=== PATIENT | male | born 1955 | race Caucasian/White ===

== ENCOUNTER 2024-01-23 09:38 | Emergency (ER) | payer OTHER ==
--- OUTSIDE RECORDS SUMMARY | 2024-01-23 09:41 | XMS REPORT | Clinical Summary ---
Author Name Unknown Organization [facility] Address [address] [place] [place] [address] Care Team Providers Care Stripper Cutter Machine Name Role Phone Harry Oropeza Jenni Unavailable Hadley Hyman MD Unavailable [phone] Cesilia Raines Unavailable [phone] Mor Damon MD Primary Care Provider [phone] Alanna Jacobsen MD Unavailable [phone] Tomi Aburto MD Unavailable [phone] Allergies No known active allergies Medications * This document contains information received from the source organization and may not represent a complete record from that organization. furosemide (LASIX) 20 mg tablet Take 20 mg by mouth daily. 05/31/2017 Active spironolactone (ALDACTONE) 25 mg tablet Take 25 mg by mouth daily. Active buprenorphine-na loxone (SUBOXONE) 8 mg-[address] 8 mg under the tongue daily. 05/01/2017 Active carvedilol (COREG) 6.25 mg tablet Take 12.5 mg by mouth twice daily. 2 01/22/2018 Active doxazosin (CARDURA) 2 mg tablet Take 1 tablet by mouth daily. 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 Morbid obesity 10/31/2005 Benign essential hypertension 09/02/2005 Surgical History Surgery Date Site/Laterality Comments COLON SURGERY 02/27/2007 - 02/27/2008 polyp of colon COLONOSCOPY 02/27/2011 - 02/27/2012 HERNIA REPAIR 2009 3 surgeries, NEPHRECTOMY 02/27/2007 - 02/27/2008 Right Mass in kidney - KNEE ARTHROPLASTY 02/27/2014 - 02/26/2015 left TOTAL KNEE ARTHROPLASTY 03/30/2017 - 04/26/2017 Left OR EXCISION MALIGNANT LESION F/E/E/N/L 0.5 CM/< 11/08/2018 Midline Procedure: EXCISION OF MALIGNANT LESION OF NOSE; Surgeon: Mor Damon MD; Location: MAIN OR; Service: HN - HEAD & NECK SURGERY OR FTH/GFT FREE W/DIRECT CLOSURE N/E/E/L 20 SQ CM/< 11/09/2018 Midline Procedure: FULL THICKNESS GRAFT OF NOSE; Surgeon: Tomi Aburto MD; Location: MAIN OR; Service: PLS - PLASTIC SURGERY Medical History Medical History Date Comments Hypertension Peripheral vascular disease Thrombosis 2014 DVT in the left leg in 2014 Migraine Chronic fatigue syndrome Hearing loss Chronic bronchitis Dependence on continuous pos itive airway pressure ventilation Hepatitis Kidney failure Sexual dysfunction Benign prostatic hyperplasia Disorder of testis Blood coagulation disorder Blood transfusion, without reported diagnosis Arthritis Depressive disorder Anxiety Bladder cancer Kidney cancer Malignant melanoma Colon cancer Deep venous thrombosis Chronic DVT of lower leg 01/23/2018 Family History Medical History Relation Name Comments -Breast cancer Mother -Colon cancer Mother Relation Name Status Comments Mother Social History Tobacco Use Types Packs/Day Years Used Date Smoking Tobacco: Every Day Cigarettes 1 3 Smokeless Tobacco: Never Tobacco Cessation:Ready to Q uit: Yes Comments:started smoking 15 years of age, quit 1999 started back 2013 Alcohol Use Standard Drinks/Week Comments No 0 (1 standard drink = 0.6 oz pur e alcohol) Sex and Gender Information Value Date Recorded Sex Assigned at Not on file 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 Gender Identity Not on file Sexual Orientation Not on file Obstetrics History Plan of Treatment Health Maintenance Due Date Last Done Comments Pneumococcal Vaccine: 65+ Years (1 of 1 - PCV) 021 COVID-19 Vaccine ( - 2023- season) 2023 Influenza Vaccine (#1) 2023 Medical Devices Implanted Type Area Bulk Loader Device Identifier Shelf Expiration Date Model / Serial / Lot Left Knee Insurance Care Teams Stripper Cutter Machine Relationship Specialty Start Date End Date Harry Oropeza [address] [place] [phone] PCP - External Primary Care Provider Family Practice 01/05/18 Cesilia Raines AuD [address] [place] [phone] PCP - External Follow Up A 10/01/18 Mor Damon MD [address] [place] [phone] [email or web address] PCP - General Head and Neck Surgery 10/01/18 Alanna Jacobsen MD [address] [place] [phone] [email or web address] [email or web address] - External Referring Otolaryngology 10/02/18 Hadley Hyman MD [address] [phone] Referring Physician Cardiology 01/25/18 Tomi Aburto MD [address] [place] [phone] [email or web address] [email or web address] Physician Plastic and Reconstructive Surgery 11/08/18
[2024-01-23] MEDS ORDERED: LIDOCAINE 1% MPF 5 ML VIAL ONE (10:02)
--- NOTE | 2024-01-23 10:12 | RAD REPORT ---
EXAM: CT brain without contrast HISTORY: head injury, anticoagulation, left brow lac COMPARISON: 05/21/2022 TECHNIQUE: Multiple contiguous axial images were obtained and a CT of the brain without contrast. Sag ittal and coronal reformats were performed. One or more of the following dose reduction techniques were used: Automated exposure control, adjust ment of the mA and/or kV according to patient size, and/or iterative reconstruction. FINDINGS: No evidence of hydrocephalus, intracranial hemorrhage, or extra-axial fluid collection. Mild brain atrophy with mild periventricular and deep white matter chronic microvascular ischemic ch anges present. No evidence of midline shift or areas of brain edema. The calvarium is intact. The visualized paranasal sinuses and mastoid air cells are essentially clear . IMPRESSION: No evidence of acute intracranial abnormality.
--- NOTE | 2024-01-23 11:00 | ER ---
Nurse's Notes [facility] Name: Ran Nguyen Age: 68 yrs Sex: Male : 1955 Arrival Date: 01/23/2024 Time: 09:38 Bed 5 Private MD: Diagnosis: Laceration with foreign body of other part of head, initial encounter Presentation: 01/22 09:42 Chief complaint: EMS states: patient tripped and fell onto concrete, hitting the left ap3 side of his head. patient denies LOC and reports being on Eliquis. Coronavirus screen: At this time, the client does not indicate any symptoms associated with coronavirus-19. Ebola Screen: No symptoms or risks identified at this time. Initial Sepsis Screen: Does the patient meet any 2 criteria? No. Patient's initial sepsis screen is negative. Does the patient have a suspected source of infection? No. Patient's initial sepsis screen is negative. Risk Assessment: Do you want to hurt yourself or someone else? Patient reports no desire to harm self or others. Onset of symptoms was January 23, 2024. 09:42 Method Of Arrival: EMS: [facility] ap3 09:42 Acuity: LINDA 2 ap3 Triage Assessment: 09:44 General: Appears in no apparent distress. Behavior is calm, cooperative, appropriate ap3 for age. Pain: Denies pain. Neuro: Level of Consciousness is awake, alert, obeys commands, Oriented to person, place, time, situation, Appropriate for age Speech is normal, Facial symmetry appears normal. Cardiovascular: Patient's skin is warm and dry. Respiratory: Airway is patent Respiratory effort is even, unlabored, Respiratory pattern is regular, symmetrical. Derm: Wound noted left eye and left scientologist. Historical: - Allergies: 09:43 No Known Allergies; ap3 - Home Meds: 09:43 Eliquis 2.5 mg oral tablet [Active]; ap3 - PMHx: 09:43 Bladder CA; DVT; Hypertension; skin ca; ap3 - Immunization history:: Client reports having NOT received the Covid vaccine. Flu vaccine is up to date. - Infectious Disease History:: Denies. - Social history:: Smoking status: Patient denies any tobacco usage or history of. Patient uses street drugs, marijuana. - Family history:: not pertinent. - Hospitalizations: : No recent hospitalization is reported. Screenin:45 [facility] ED Fall Risk Assessment (Adult) History of falling in the last 3 months, ap3 including since admission Yes- single mechanical fall (1 pt) Confusion or Disorientation No (0 pts) Intoxicated or Sedated No (0 pts) Impaired Gait No (0 pts) Mobility Assist Device Used No (0 pt) Altered Elimination No (0 pt) Score/Fall Risk Level 0 - 2 = Low Risk Oriented to surroundings, Maintained a safe environment, Educated pt \T\ family on fall prevention, incl call for assistance when getting out of bed, Assessed \T\ reinforced patient's understanding of fall precautions, Hourly rounding (assess needs \T\ fall precautionary measures) done, Used ambulatory aids as needed (educated on \T\ assisted with), Used gait belt as appropriate. Abuse screen: Denies threats or abuse. Nutritional screening: No deficits noted. Tuberculosis screening: No symptoms or risk factors identified. Assessment: 09:51 General: Appears in no apparent distress. comfortable, well groomed, well developed, kc6 Behavior is calm, cooperative, appropriate for age. Pain: Complains of pain in left scientologist and left eye. Neuro: Level of Consciousness is awake, alert, obeys commands, Oriented to person, place, time, situation, Appropriate for age. Cardiovascular: Capillary refill < 3 seconds Edema is 4+ to left midcalf, left ankle, right midcalf and right ankle pitting to left midcalf, left ankle, right midcalf and right ankle. Respiratory: Airway is patent Trachea midline Respiratory effort is even, unlabored, Respiratory pattern is regular, symmetrical. GI: No signs and/or symptoms were reported involving the gastrointestinal system. : No signs and/or symptoms were reported regarding the genitourinary system. EENT: No signs and/or symptoms were reported regarding the EENT system. Derm: Skin is intact, is healthy with good turgor, Skin is pink, warm \T\ dry. Musculoskeletal: No signs and/or symptoms reported regarding the musculoskeletal system. Circulation, motion, and sensation intact. Capillary refill < 3 seconds, Range of motion: intact in all extremities. Injury Description: Abrasion sustained to left arm and face. 11:17 Reassessment: Patient appears in no apparent distress at this time. No changes from kc6 previously documented assessment. Patient and/or family updated on plan of care and expected duration. Pain level reassessed. Patient is alert, oriented x 3, equal unlabored respirations, skin warm/dry/pink. Patient states feeling better. Patient states symptoms have improved. Vital Signs: 09:42 BP 125 / 68; Pulse 54; Resp 18; Temp 98.8; Pulse Ox 99% ; Weight 144.7 kg; Height 5 ft. ap3 10 in. ; Pain 0/10; 11:17 BP 113 / 69; Pulse 60; Resp 18 S; Pulse Ox 99% on R/A; kc6 09:42 Body Mass Index 45.77 (144.70 kg, 177.8 cm) ap3 09:42 Pain Scale: Adult ap3 Jamie Coma Score: 09:45 Eye Response: spontaneous(4). Motor Response: obeys commands(6). Verbal Response: ap3 oriented(5). Total: 15. Trauma Score (Adult): 09:45 Eye Response: spontaneous(1); Verbal Response: oriented(1); Motor Response: obeys ap3 commands(2); Systolic BP: > 89 mm Hg(4); Respiratory Rate: 10 to 29 per min(4); Hartwick Score: 15; Trauma Score: 12 ED Course: 09:42 Patient arrived in ED. ap3 09:43 Triage completed. ap3 09:43 Talon Stearns MD is Attending Physician. rn 09:45 Patient has correct armband on for positive identification. Bed in low position. Call ap3 light in reach. Side rails up X2. Client placed on continuous cardiac and pulse oximetry monitoring. NIBP monitoring applied. office technologist on. Pulse ox on. NIBP on. 09:46 Arm band placed on right wrist. ap3 09:49 Steph Mancilla, TACOS is Primary Nurse. kc6 09:51 Door closed. Noise minimized. Lights dimmed. Pillow given. kc6 09:51 Patient maintains SpO2 saturation greater than 95% on room air. kc6 09:[address] via stretcher. kc6 09:55 CT Head Brain wo Cont In Process Unspecified. EDMS 10:06 Wound care: to laceration located on outer aspect of left eyebrow was cleaned with kc6 [place], Patient tolerated well. 10:31 Assist provider with laceration repair on outer aspect of left eyebrow that was 2.5 cm. kc6 or less using sutures. Set up tray. Performed by Talon Stearns MD Dressed with 4X4s, Patient tolerated well. 11:18 Patient did not have IV access during this emergency room visit. kc6 Administered Medications: 10:20 Drug: Lidocaine Infiltration (1 %) 1 vials 5 ml Infiltration once; to bedside Volume: 5 kc6 ml; Route: Infiltration; 11:17 Follow up: Response: No adverse reaction; Pain is decreased kc6 Medication: 11:18 VIS not applicable for this client. kc6 Outcome: 11:00 Discharge ordered by . rn 11:17 Discharged to home ambulatory, with significant other, kc6 11:17 Condition: good 11:17 Discharge instructions given to patient, significant other, Instructed on discharge instructions, follow up and referral plans. wound care, Demonstrated understanding of instructions, follow-up care, wound care, 11:18 Patient left the ED. kc6 Signatures: Dispatcher [employer] EDTalon Jalloh MD MD rn Prokisch, Amanda RN RN [email or web address] Steph Mancilla RN RN kc6
--- NOTE | 2024-01-23 11:00 | EDPHYS ---
Physician Documentation [facility] Name: Ran Nguyen Age: 68 yrs Sex: Male : 1955 Arrival Date: 01/23/2024 Time: 09:38 Bed 5 Private MD: ED Physician Talon Stearns HPI: 01/22 10:03 This 68 yrs old Male presents to ER via EMS with complaints of Fall Injury. rn 10:03 Details of fall: The patient fell from an upright position. Onset: The symptoms/episode rn began/occurred just prior to arrival. Associated injuries: The patient sustained injury to the head. Severity of symptoms: At their worst the symptoms were mild, in the emergency department the symptoms are unchanged. The patient has not experienced similar symptoms in the past. Patient reports he tripped while on concrete, fell on left side and struck left brow. Has small laceration to left brow. No LOC. Does take blood thinners. Denies pain or injury elsewhere. Remembers all events.. Historical: - Allergies: 09:43 No Known Allergies; ap3 - Home Meds: 09:43 Eliquis 2.5 mg oral tablet [Active]; ap3 - PMHx: 09:43 Bladder CA; DVT; Hypertension; skin ca; ap3 - Immunization history:: Client reports having NOT received the Covid vaccine. Flu vaccine is up to date. - Infectious Disease History:: Denies. - Social history:: Smoking status: Patient denies any tobacco usage or history of. Patient uses street drugs, marijuana. - Family history:: not pertinent. - Hospitalizations: : No recent hospitalization is reported. ROS: 10:03 Constitutional: Negative for fever, chills, and weight loss, Eyes: Negative for injury, rn pain, redness, and discharge, Neck: Negative for injury, pain, and swelling, Cardiovascular: Negative for chest pain, palpitations, and edema, Respiratory: Negative for shortness of breath, cough, wheezing, and pleuritic chest pain, Abdomen/GI: Negative for abdominal pain, nausea, vomiting, diarrhea, and constipation, Back: Negative for injury and pain, MS/Extremity: Negative for injury and deformity, Skin: Positive for laceration to left brow, positive for abrasion to the left hand Neuro: Negative for headache, weakness, numbness, tingling, and seizure, Exam: 10:03 Constitutional: This is a well developed, well nourished patient who is awake, alert, rn and in no acute distress. Head/Face: Normocephalic, 3 cm superficial linear abrasion along lateral aspect of left brow. No foreign body. No active bleeding. Eyes: Pupils equal round and reactive to light, extra-ocular motions intact. Neck: No midline tenderness Chest/axilla: No rib tenderness or crepitus Cardiovascular: Bradycardic, regular. No pulse deficits. Respiratory: No increased work of breathing, no retractions or nasal flaring. Abdomen/GI: Soft, nontender Back: No spinal tenderness. Full range of motion MS/ Extremity: Pulses equal, no cyanosis. Neurovascular intact. Full, normal range of motion. Equal circumference. Neuro: Awake and alert, GCS 15 Vital Signs: 09:42 BP 125 / 68; Pulse 54; Resp 18; Temp 98.8; Pulse Ox 99% ; Weight 144.7 kg; Height 5 ft. ap3 10 in. ; Pain 0/10; 11:17 BP 113 / 69; Pulse 60; Resp 18 S; Pulse Ox 99% on R/A; kc6 09:42 Body Mass Index 45.77 (144.70 kg, 177.8 cm) ap3 09:42 Pain Scale: Adult ap3 Jamie Coma Score: 09:45 Eye Response: spontaneous(4). Motor Response: obeys commands(6). Verbal Response: ap3 oriented(5). Total: 15. Trauma Score (Adult): 09:45 Eye Response: spontaneous(1); Verbal Response: oriented(1); Motor Response: obeys ap3 commands(2); Systolic BP: > 89 mm Hg(4); Respiratory Rate: 10 to 29 per min(4); [place] Score: 15; Trauma Score: 12 Laceration: 10:58 Wound Repair of 3cm ( 1.2in ) subcutaneous laceration to outer aspect of left eyebrow. rn Distal neuro/vascular/tendon intact. Anesthesia: Wound infiltrated with 3 mls of 1% lidocaine. Wound prep: Extensive cleansing by nurse, Wound explored. Skin closed with 5 5-0 fast absorbing gut using interrupted sutures and sterile technique. Patient tolerated well. MDM: 09:43 Medical Screening Exam initiated rn 10:58 Differential diagnosis: abrasion, closed head injury, contusion, fracture, laceration. rn Data reviewed: vital signs, nurses notes, radiologic studies, CT scan, and as a result, I will discharge patient. Counseling: I had a detailed discussion with the patient and/or guardian regarding the historical points, exam findings, and any diagnostic results supporting the discharge/admit diagnosis, radiology results, the need for outpatient follow up, to return to the emergency department if symptoms worsen or persist or if there are any questions or concerns that arise at home. Response to treatment: the patient's symptoms have markedly improved after treatment, and as a result, I will discharge patient. Special discussion: I discussed with the patient/guardian in detail that at this point there is no indication for admission to the hospital. It is understood, however, that if the symptoms persist or worsen the patient needs to return immediately for re-evaluation. 01/22 09:45 Order name: CT Head Brain wo Cont; Complete Time: 10:14 rn 01/22 09:50 Order name: Wound Care; Complete Time: 09:53 rn 01/22 09:50 Order name: Suture Tray at Bedside; Complete Time: :53 rn Administered Medications: 10:20 Drug: Lidocaine Infiltration (1 %) 1 vials 5 ml Infiltration once; to bedside Volume: 5 kc6 ml; Route: Infiltration; 11:17 Follow up: Response: No adverse reaction; Pain is decreased kc6 Disposition Summary: 01/23/24 11:00 Discharge Ordered Notes: Location: Home rn Problem: new rn Symptoms: have improved rn Condition: Stable rn Diagnosis - Laceration with foreign body of other part of head, initial encounter rn Followup: rn - With: Private Physician - When: As needed - Reason: Recheck today's complaints, Re-evaluation by your physician Discharge Instructions: - Discharge Summary Sheet rn - Head Injury, Adult rn - Laceration Care, Adult rn Forms: - Medication Reconciliation Form rn - Antibiotic turn out - Prescription Opioid Use rn - Patient Portal Instructions rn - Leadership Thank You Letter rn Signatures: Dispatcher [employer] Talon Lamar MD MD rn Prokisch, Amanda, RN RN ap3 Steph Mancilla RN RN kc6
[2024-01-23 14:44] VITALS: TEMP 98.8; O2SAT 99
[2024-01-23 14:45] VITALS: BP 113/69
== END 2024-01-23 11:18 | disposition home or self-care (01) ==
LOC: ER 09:38
DX: S01.81XA Laceration without foreign body of other part of head, initial encounter (principal); W01.0XXA Fall on same level from slipping, tripping and stumbling without subsequent striking against object, initial encounter; Z79.01 Long term (current) use of anticoagulants
CPT/HCPCS: 70450; 99285; 12052; J2003

== ENCOUNTER 2024-01-28 05:41 | Emergency (ER) | payer OTHER ==
--- OUTSIDE RECORDS SUMMARY | 2024-01-28 05:44 | XMS REPORT | Clinical Summary ---
Author Name Unknown Organization [facility] Address [address] [place] [address] Care Team Providers Care Middle Card Tender Name Role Phone Harry Oropeza Jenni Unavailable Hadley Hyman MD Unavailable [phone] Cesilia Raines Unavailable Mor Damon MD Primary Care Provider [phone] Alanna Jacobsen MD Unavailable [phone] Tomi Aburto MD Unavailable [phone] Allergies No known active allergies Medications [...] (10/09/2018): Added automatically from request for surgery [id number] Malignant melanoma of nose 10/05/2018 Tobacco use disorder, moderate 01/25/2018 Chronic DVT of lower leg 01/23/2018 Deep venous thrombosis of lower extremity 2017 Transitional cell carcinoma of bladder 6 Overview (01/23/2018): Overview: ICD10 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 Morbid obesity 10/31/2005 Benign essential hypertension 09/02/2005 Surgical History Surgery Date Site/Laterality Comments COLON SURGERY 02/27/2007 - 02/27/2008 polyp of colon COLONOSCOPY 02/27/2011 - 02/27/2012 HERNIA REPAIR 2009 3 surgeries, NEPHRECTOMY 02/27/2007 - 02/27/2008 Right Mass in kidney - KNEE ARTHROPLASTY 02/27/2014 - 02/26/2015 left TOTAL KNEE ARTHROPLASTY 03/30/2017 - 04/26/2017 Left [place] EXCISION MALIGNANT LESION F/E/E/N/L 0.5 CM/< 11/08/2018 Midline Procedure: EXCISION OF MALIGNANT LESION OF NOSE; Surgeon: Mor Damon MD; Location: MAIN OR; Service: HN - HEAD & NECK SURGERY [place] FTH/GFT FREE W/DIRECT CLOSURE N/E/E/L 20 SQ [...] on file 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 Gender Identity Not on file Sexual Orientation Not on file Obstetrics History Plan of Treatment Health Maintenance Due Date Last Done Comments Pneumococcal Vaccine: 65+ Years (1 of 1 - PCV) 021 COVID-19 Vaccine ( - 2023- season) 2023 Influenza Vaccine (#1) 2023 Medical Devices Implanted Type Area Mold Maintenance Technician Device Identifier Shelf Expiration Date Model / Serial / Lot Left Knee Insurance Care Teams Middle Card Tender Relationship Specialty Start Date End Date Harry Oropeza [address] [place] [phone] PCP - External Primary Care Provider Family Practice 01/05/18 Cesilia Raines AuD [address] [place] [phone] PCP - External Follow Up A 10/01/18 Mor Damon MD [address] [place] [phone] [email or web address] PCP - General Head and Neck Surgery 10/01/18 Alanna Jacobsen MD [address] [place] [phone] [email or web address] PCP - External Referring Otolaryngology 10/02/18 Hadley Hyman MD [address] [phone] Referring Physician Cardiology 01/25/18 Tomi Aburto MD [address] [place] [phone] [email or web address] [email or web address] Physician Plastic and Reconstructive Surgery 11/08/18
[2024-01-28] MEDS ORDERED: ONDANSETRON 4 MG/2 ML VIAL ONE (06:01)
[2024-01-28] MEDS ORDERED: methocarbamoL 750 MG TAB ONE (06:02)
[2024-01-28] MEDS ORDERED: MORPHINE 4 MG/ML SYR ONE ×2 (06:02→08:29)
[2024-01-28] MEDS ORDERED: MORPHINE 2 MG/ML SYR ONE (06:03)
--- NOTE | 2024-01-28 08:15 | ER ---
Nurse's Notes [facility] Name: Ran Nguyen Age: 68 yrs Sex: Male : 1955 Arrival Date: 01/28/2024 Time: 05:41 Bed 14 Private MD: Diagnosis: Fall on same level, unspecified;Obesity, unspecified;Contusion of right knee;Fracture of patella;Osteoarthritis of knee, unspecified-severe;halfway (current) use of anticoagulants Presentation: 01/27 05:55 Chief complaint: EMS states: PT HAD A MECHANICAL FALL, LANDING ON RT KNEE. NO LOC. PT dd2 ON ELIQUIS. Coronavirus screen: At this time, the client does not indicate any symptoms associated with coronavirus-19. Ebola Screen: No symptoms or risks identified at this time. Initial Sepsis Screen: Does the patient meet any 2 criteria? No. Patient's initial sepsis screen is negative. Does the patient have a suspected source of infection? No. Patient's initial sepsis screen is negative. Risk Assessment: Do you want to hurt yourself or someone else? Patient reports no desire to harm self or others. Onset of symptoms was January 28, 2024. Care prior to arrival: Medication(s) given: FENTANYL 100 MCG IV initiated. 20 GA, in the right antecubital area. 05:55 Method Of Arrival: EMS: [facility] dd2 05:55 Acuity: LINDA 3 dd2 Triage Assessment: 06:16 General: Appears uncomfortable, Behavior is calm, cooperative, appropriate for age. dd2 Pain: Complains of pain in right knee Pain does not radiate. Pain currently is 7 out of 10 on a pain scale. EENT: No deficits noted. No signs and/or symptoms were reported regarding the EENT system. Neuro: Level of Consciousness is awake, alert, obeys commands, Oriented to person, place, time, situation, Appropriate for age. Cardiovascular: No deficits noted. Patient's skin is warm and dry. Respiratory: Airway is patent Respiratory effort is even, unlabored, Respiratory pattern is regular, symmetrical. GI: Abdomen is round non-distended. : No deficits noted. No signs and/or symptoms were reported regarding the genitourinary system. Derm: Bruising that is on right hand and left hand EDEMA BLE. Derm: SKIN TEAR LT HAND. Musculoskeletal: Circulation, motion, and sensation intact. Swelling present in right leg and left leg Reports pain in right knee. Historical: - Allergies: 06:16 No Known Allergies; dd2 - PMHx: 06:16 Bladder CA; DVT; Hypertension; skin ca; dd2 - PSHx: 06:16 Lt knee replacement (skin ca); dd2 - Immunization history:: Adult Immunizations up to date. - Infectious Disease History:: Denies. - Social history:: Smoking status: Patient denies any tobacco usage or history of. - Family history:: not pertinent. Screenin:21 [facility] ED Fall Risk Assessment (Adult) History of falling in the last 3 months, dd2 including since admission Yes- physiologic fall (2 pts) Confusion or Disorientation No (0 pts) Intoxicated or Sedated No (0 pts) Impaired Gait No (0 pts) Mobility Assist Device Used No (0 pt) Altered Elimination No (0 pt) Score/Fall Risk Level 0 - 2 = Low Risk Oriented to surroundings, Maintained a safe environment, Educated pt \T\ family on fall prevention, incl call for assistance when getting out of bed, Assessed \T\ reinforced patient's understanding of fall precautions, Hourly rounding (assess needs \T\ fall precautionary measures) done. Abuse screen: Denies threats or abuse. Nutritional screening: No deficits noted. Tuberculosis screening: No symptoms or risk factors identified. Assessment: 06:21 Reassessment: SEE TRIAGE ASSESSMENT FOR FULL ASSESSMENT. dd2 08:55 Reassessment: discharge delayed due to being ordered prior to immobilizer/crutches ko1 being ordered. Vital Signs: 05:55 BP 139 / 78; Pulse 63; Resp 17; Temp 98.4(O); Pulse Ox 96% on R/A; Weight 145.15 kg; dd2 Height 5 ft. 11 in. ; 07:12 BP 112 / 68; Pulse 54; Resp 16; Pulse Ox 95% ; ko1 08:46 BP 118 / 72; Pulse 62; Resp 16; Pulse Ox 99% ; ko1 05:55 Body Mass Index 44.63 (145.15 kg, 180.34 cm) dd2 Jamie Coma Score: 06:21 Eye Response: spontaneous(4). Motor Response: obeys commands(6). Verbal Response: dd2 oriented(5). Total: 15. 08:05 Eye Response: spontaneous(4). Motor Response: obeys commands(6). Verbal Response: sp4 oriented(5). Total: 15. ED Course: 05:48 Patient arrived in ED. dd2 05:49 Johan Mckeon MD is Attending Physician. sp4 05:54 MATTHEW SHERMAN RN is Primary Nurse. dd2 06:16 Triage completed. dd2 06:16 Arm band placed on right wrist. Patient placed in an exam room, on a stretcher, on dd2 pulse oximetry. 06:21 Patient has correct armband on for positive identification. Bed in low position. Call dd2 light in reach. Side rails up X2. Client placed on continuous cardiac and pulse oximetry monitoring. NIBP monitoring applied. Door closed. Noise minimized. Pillow given. Verbal reassurance given. 06:21 No provider procedures requiring assistance completed. Maintain EMS IV. Dressing dd2 intact. Good blood return noted. Site clean \T\ dry. Gauge \T\ site: 20G RAC. Flushed with 10 mL NS. Patient maintains SpO2 saturation greater than 95% on room air. 06:37 Knee Right 3 View XRAY In Process Unspecified. EDMS 06:37 Femur Right XRAY In Process Unspecified. EDMS 07:12 Provided Education on: labs, meds. ko1 08:03 Attending Physician role handed off by Johan Mckeon MD aravind 08:03 Mark Hood MD is Attending Physician. aravind 08:13 Mirza Swanson MD is Referral Physician. aravind 08:46 IV discontinued, intact, bleeding controlled, No redness/swelling at site. Pressure ko1 dressing applied. Crutch training done. Knee immobilizer applied on right knee. 08:46 Wound care: located on right knee ice pack applied. ko1 08:53 Awaiting transportation. ko1 Administered Medications: 06:12 Drug: morphine IVP or IV 6 mg IVP once over 4 mins Route: IVP; Infused Over: 4 mins; dd2 Site: right antecubital; 06:42 Follow up: Response: No adverse reaction dd2 06:12 Drug: Ondansetron IVP 4 mg IVP once; over 2 minutes Route: IVP; Site: right antecubital;dd2 06:42 Follow up: Response: No adverse reaction dd2 06:12 Drug: Methocarbamol PO 1500 mg PO once Route: PO; dd2 06:42 Follow up: Response: No adverse reaction dd2 08:35 Drug: morphine IVP or IV 4 mg IVP once over 4 mins Route: IVP; Infused Over: 4 mins; ko1 Site: right antecubital; 08:50 Follow up: Response: No adverse reaction; Pain is decreased ko1 Medication: 06:21 VIS not applicable for this client. dd2 Outcome: 08:15 Discharge ordered by MD. nazario 08:46 Discharged to home via wheelchair, with crutches, with friend, ko1 08:46 Condition: stable 08:46 Discharge instructions given to patient, Instructed on discharge instructions, follow up and referral plans. medication usage, crutch walking, Demonstrated understanding of instructions, follow-up care, medications, crutch walking, Prescriptions given X 1, 08:56 Patient left the ED. ko1 Signatures: Dispatcher [employer] EDMS Mark Hood MD MD cha Oliver, Kathy RN RN ko1 Johan Mckeon MD MD sp4 MATTHEW SHERMAN RN RN dd2
--- NOTE | 2024-01-28 08:15 | EDPHYS ---
Physician Documentation [facility] Name: Ran Nguyen Age: 68 yrs Sex: Male : 1955 Arrival Date: 01/28/2024 Time: 05:41 Bed 14 Private MD: ED Physician Mark Hood HPI: 01/27 05:49 This 68 yrs old Male presents to ER via Unassigned with complaints of Fall sp4 Injury. 08:05 60-year-old male presents with acute fall in the garage at 1 AM causing injury to the sp4 right knee. Historical: - Allergies: 06:16 No Known Allergies; dd2 - PMHx: 06:16 Bladder CA; DVT; Hypertension; skin ca; dd2 - PSHx: 06:16 Lt knee replacement (skin ca); dd2 - Immunization history:: Adult Immunizations up to date. - Infectious Disease History:: Denies. - Social history:: Smoking status: Patient denies any tobacco usage or history of. - Family history:: not pertinent. ROS: 08:05 Constitutional: Negative for fever, chills, and weight loss, positive right knee sp4 contusion 08:05 All other systems are negative, 08:05 Constitutional: Negative for fever, chills, and weight loss, Eyes: Negative for injury, aravind pain, redness, and discharge, ENT: Negative for injury, pain, and discharge, Neck: Negative for injury, pain, and swelling, Cardiovascular: Negative for chest pain, palpitations, and edema, Respiratory: Negative for shortness of breath, cough, wheezing, and pleuritic chest pain, Abdomen/GI: Negative for abdominal pain, nausea, vomiting, diarrhea, and constipation, Back: Negative for injury and pain, : Negative for injury, bleeding, discharge, and swelling, Skin: Negative for injury, rash, and discoloration, Neuro: Negative for headache, weakness, numbness, tingling, and seizure, Psych: Negative for depression, anxiety, suicide ideation, homicidal ideation, and hallucinations, Allergy/Immunology: Negative for hives, rash, and allergies, Endocrine: Negative for neck swelling, polydipsia, polyuria, polyphagia, and marked weight changes, Hematologic/Lymphatic: Negative for swollen nodes, abnormal bleeding, and unusual bruising, 08:05 MS/extremity: Positive for decreased range of motion, pain, swelling, tenderness, of the right knee, Exam: 08:05 Constitutional: This is a well developed, well nourished patient who is awake, alert, sp4 and in no acute distress. Head/Face: Normocephalic, atraumatic. Eyes: Pupils equal round and reactive to light, extra-ocular motions intact. Lids and lashes normal. Conjunctiva and sclera are not injected. Cornea within normal limits. Periorbital areas with no swelling, redness, or edema. ENT: Nares patent. No nasal discharge, no septal abnormalities noted. Tympanic membranes are normal and external auditory canals are clear. Oropharynx with no redness, swelling, or masses, exudates, or evidence of obstruction, uvula midline. Mucous membranes moist. Neck: Trachea midline, no thyromegaly or masses palpated, and no cervical lymphadenopathy. Supple, full range of motion without nuchal rigidity, or vertebral point tenderness. Chest/axilla: Normal chest wall appearance and motion. Nontender with no deformity. No lesions are appreciated. Cardiovascular: Regular rate and rhythm with a normal S1 and S2. No gallops, murmurs, or rubs. Normal PMI, no JVD. No pulse deficits. Respiratory: Lungs have equal breath sounds bilaterally, clear to auscultation and percussion. No rales, rhonchi or wheezes noted. No increased work of breathing, no retractions or nasal flaring. Abdomen/GI: Soft, with normal bowel sounds. No distension or tympany. No guarding or rebound. No evidence of tenderness throughout. Back: No spinal tenderness. No costovertebral tenderness. Skin: Warm, dry with normal turgor. Normal color with no rashes, no lesions, and no evidence of cellulitis. MS/ Extremity: Pulses equal, no cyanosis. Neurovascular intact. Full, normal range of motion. Neuro: Awake and alert, GCS 15, oriented to person, place, time, and situation. Cranial nerves II-XII grossly intact. Motor strength 5/5 in all extremities. Sensory grossly intact. Psych: Awake, alert, with orientation to person, place and time. Behavior, mood, and affect are within normal limits 08:05 Constitutional: This is a well developed, well nourished patient who is awake, alert, aravind and in no acute distress. Head/Face: Normocephalic, atraumatic. Eyes: Pupils equal round and reactive to light, extra-ocular motions intact. Lids and lashes normal. Conjunctiva and sclera are non-icteric and not injected. Cornea within normal limits. Periorbital areas with no swelling, redness, or edema. ENT: Nares patent. No nasal discharge, no septal abnormalities noted. Tympanic membranes are normal and external auditory canals are clear. Oropharynx with no redness, swelling, or masses, exudates, or evidence of obstruction, uvula midline. Mucous membranes moist. Neck: Trachea midline, no thyromegaly or masses palpated, and no cervical lymphadenopathy. Supple, full range of motion without nuchal rigidity, or vertebral point tenderness. No Meningismus. Cardiovascular: Regular rate and rhythm with a normal S1 and S2. No gallops, murmurs, or rubs. Normal PMI, no JVD. No pulse deficits. Respiratory: Lungs have equal breath sounds bilaterally, clear to auscultation and percussion. No rales, rhonchi or wheezes noted. No increased work of breathing, no retractions or nasal flaring. Abdomen/GI: Soft, non-tender, with normal bowel sounds. No distension or tympany. No guarding or rebound. No evidence of tenderness throughout. Back: No spinal tenderness. No costovertebral tenderness. Full range of motion. Male : Normal genitalia with no discharge or lesions. Skin: Warm, dry with normal turgor. Normal color with no rashes, no lesions, and no evidence of cellulitis. MS/ Extremity: Pulses equal, no cyanosis. Neurovascular intact. Full, normal range of motion., bilateral aka Neuro: Awake and alert, GCS 15, oriented to person, place, time, and situation. Cranial nerves II-XII grossly intact. Motor strength 5/5 in all extremities. Sensory grossly intact. Cerebellar exam normal. Normal gait. Psych: Awake, alert, with orientation to person, place and time. Behavior, mood, and affect are within normal limits. 08:05 Chest/axilla: Inspection: normal, Palpation: is normal, 08:05 Musculoskeletal/extremity: ROM: limited active range of motion, limited passive range of motion, limited active range of motion due to pain, limited passive range of motion due to pain, Circulation is intact in all extremities. Sensation intact. Compartment Syndrome exam of affected extremity: is normal. DVT Exam: pain, swelling, tenderness, of the right leg, of the right leg, Vital Signs: 05:55 BP 139 / 78; Pulse 63; Resp 17; Temp 98.4(O); Pulse Ox 96% on R/A; Weight 145.15 kg; dd2 Height 5 ft. 11 in. ; 07:12 BP 112 / 68; Pulse 54; Resp 16; Pulse Ox 95% ; ko1 08:46 BP 118 / 72; Pulse 62; Resp 16; Pulse Ox 99% ; ko1 05:55 Body Mass Index 44.63 (145.15 kg, 180.34 cm) dd2 Jamie Coma Score: 06:21 Eye Response: spontaneous(4). Motor Response: obeys commands(6). Verbal Response: dd2 oriented(5). Total: 15. 08:05 Eye Response: spontaneous(4). Motor Response: obeys commands(6). Verbal Response: sp4 oriented(5). Total: 15. MDM: 05:50 Medical Screening Exam initiated sp4 08:05 Differential diagnosis: dislocation, closed fracture, contusion, abrasion, tendonitis. sp4 Data reviewed: vital signs, nurses notes, EMS record, radiologic studies, plain films. Transition of care: After a detail discussion of the patient's case, care is transferred to Mark Hood MD. 01/27 05:50 Order name: Knee Right 3 View XRAY sp4 01/27 05:50 Order name: Femur Right XRAY sp4 01/27 08:03 Order name: Knee Immobilizer; Complete Time: 08:45 [facility] 01/27 08:17 Order name: Crutches; Complete Time: 08:45 [facility] 01/27 08:17 Order name: Ice pack; Complete Time: 08:29 [facility] Administered Medications: 06:12 Drug: morphine IVP or IV 6 mg IVP once over 4 mins Route: IVP; Infused Over: 4 mins; dd2 Site: right antecubital; 06:42 Follow up: Response: No adverse reaction dd2 06:12 Drug: Ondansetron IVP 4 mg IVP once; over 2 minutes Route: IVP; Site: right antecubital;dd2 06:42 Follow up: Response: No adverse reaction dd2 06:12 Drug: Methocarbamol PO 1500 mg PO once Route: PO; dd2 06:42 Follow up: Response: No adverse reaction dd2 08:35 Drug: morphine IVP or IV 4 mg IVP once over 4 mins Route: IVP; Infused Over: 4 mins; ko1 Site: right antecubital; 08:50 Follow up: Response: No adverse reaction; Pain is decreased ko1 Disposition Summary: 01/28/24 08:15 Discharge Ordered Notes: Location: Home aravind Problem: new aravind Symptoms: have improved aravind Condition: Stable aravind Diagnosis - Fall on same level, unspecified aravind - Obesity, unspecified aravind - Contusion of right knee aravind - Fracture of patella aravind - Osteoarthritis of knee, unspecified - severe aravind - nursing home (current) use of anticoagulants aravind Followup: aravind - With: Private Physician - When: 2 - 3 days - Reason: Recheck today's complaints, Continuance of care, Re-evaluation by your physician Followup: aravind - With: Mirza Swanson MD - When: 2 - 3 days - Reason: Recheck today's complaints, Re-evaluation by your physician Discharge Instructions: - Discharge Summary Sheet aravind - Arthritis aravind - How to Use a Knee Brace aravind - Obesity, Adult aravind - Osteoarthritis aravind - Patellar Fracture, Adult aravind - Arthritis, [id number] [facility] Forms: - Medication Reconciliation Form aravind - Antibiotic Education aravind - Prescription Opioid Use aravind - Patient Portal Instructions [facility] - Leadership Thank You Letter [facility] Prescriptions: - acetaminophen-codeine 300-30 mg Oral tablet - take 2 tablet ORAL route every 6 hours; 26 tablet; Refills: 0, Product aravind Selection Permitted Signatures: Dispatcher [employer] Mark Rios MD MD cha Oliver, Kathy, RN RN ko1 Johan Mckeon MD MD sp4 MATTHEW SHERMAN RN RN dd2
--- NOTE | 2024-01-28 08:40 | RAD REPORT ---
EXAMINATION: XR RIGHT KNEE CLINICAL INDICATION: Male, 68 years old. Right knee pain TECHNIQUE: Multiple views of the right knee were obtained. COMPARISON: No prior exam. FINDINGS: Nondisplaced fracture of the patella is suspected. Small lipohemarthrosis in the suprapatel lar joint space. Advanced tricompartmental osteoarthritis with [id number].
--- NOTE | 2024-01-28 08:41 | RAD REPORT ---
EXAMINATION: XR RIGHT FEMUR CLINICAL INDICATION: . Right leg pain RIGHT TECHNIQUE: Multiple views of the right femur were obtained. COMPARISON: No prior exam. FINDINGS: Mild osteopenia. Right hip osteoarthritic changes are present. Advanced knee osteoarthriti s is seen. No femoral fracture present. Patella fracture is seen however separately reported.
[2024-01-28 11:03] VITALS: TEMP 98.4
[2024-01-28 11:05] VITALS: BP 118/72; O2SAT 99
== END 2024-01-28 08:56 | disposition home or self-care (01) ==
LOC: ER 05:41
DX: S82.001A Unspecified fracture of right patella, initial encounter for closed fracture (principal); M17.11 Unilateral primary osteoarthritis, right knee; E66.9 Obesity, unspecified; W18.30XA Fall on same level, unspecified, initial encounter; Z79.01 Long term (current) use of anticoagulants; Z96.652 Presence of left artificial knee joint
CPT/HCPCS: 73562; 73552; 96375; 96374; 99285; J2270; J2405